=== PATIENT | female | born 2005 | race Caucasian/White ===

== ENCOUNTER 2023-10-01 11:43 | Emergency (ER) | payer OTHER ==
[2023-10-01 12:16] LABS: #Monocytes 0.4 10x3/uL (0.0-1.1); #Neutrophils 4.6 10x3/uL (1.5-8.4); %Basophils 0.2 % (0.0-2.0); %Eosinophils 0.6 % (0.0-6.0); %Monocytes 6.6 % (0.0-10.0); %Neutrophils 69.4 % (40.0-75.0); Hematocrit 40.1 % (34.9-44.5); Hemoglobin 13.8 g/dL (12.0-15.5); Mean Corpuscular HGB CONC 34.4 g/dL (32.0-36.0); Mean Corpuscular Hemoglobin 30.9 pg (27.0-33.0); Mean Corpuscular Volume 89.7 fl (81.6-98.3); Mean Platelet Volume 10.1 fl (7.4-10.4); Platelet Count 226 10x3/uL (150-450); RBC Distribution Width 11.5 % (11.5-14.5); Red Blood Cell (RBC) Count 4.47 10x6/uL (3.90-5.03); White Blood Cell (WBC) Count 6.7 10x3/uL (3.5-10.5)
[2023-10-01 12:36] LABS: ALT (SGPT) 11 U/L (8-55); AST (SGOT) 15 U/L (5-34); Albumin 3.8 g/dL (3.5-5.0); Alkaline Phosphatase 51 U/L (40-100); Anion Gap 13 mmol/L (10-20); BUN (Urea Nitrogen) 7 mg/dL (7.0-18.7); Bilirubin, Total 0.6 mg/dL (0.2-1.2); Calc. Creatinine Clearance 0 mL/min (70-130); Calcium 8.5 mg/dL (7.8-10.44); Carbon Dioxide 20 mmol/L (22-29); Chloride 110 mmol/L (98-107); Estimated GFR 123; Globulin 2.9 g/dL (2.4-3.5); Glucose 97 mg/dL (70-105); Potassium 3.7 mmol/L (3.5-5.1); Protein, Total 6.7 g/dL (6.0-8.3); Sodium 139 mmol/L (136-145)
[2023-10-01 13:38] LABS: BHCG - Serum Negative (NEGATIVE); Pregs Control Background? CLEAR/WHITE (CLR/WHITE); Pregs Control Bar Appear? YES (CONTROL BAR)
[2023-10-01 13:51] LABS: Troponin I 0.044 ng/mL (< 0.028)
[2023-10-01 15:59] LABS: Troponin I 0.106 ng/mL (< 0.028)
[2023-10-01] MEDS ORDERED: Acetaminophen 325 MG TAB PO PRN (16:48)
[2023-10-01] MEDS ORDERED: Senokot S 8.6-50 MG TAB PO PRN (16:48)
[2023-10-01] MEDS ORDERED: Ondansetron PF 4 MG/2 ML Vial IVP PRN (16:48)
[2023-10-01] MEDS ORDERED: Calcium Carbonate 500 MG ChewTAB PO PRN (16:48)
[2023-10-01] MEDS ORDERED: Ondansetron ODT 4 MG TAB PO PRN (16:48)
[2023-10-01] MEDS ORDERED: Metoprolol Tartrate 25 MG TAB PO SCH (17:00)
[2023-10-02] MEDS ORDERED: Metoprolol Tartrate 25 MG TAB PO SCH (09:00)
[2023-10-02] MEDS ORDERED: Enoxaparin 40 MG (0.4 mL) SYRINGE SC SCH (09:00)
== END 2023-10-01 17:12 | disposition home or self-care (01) ==
LOC: SUATTDRO 11:43 → CSHERS 11:43
PROVIDERS: ADMIT Internal Medicine; ATTEND Internal Medicine
DX: I47.10 Supraventricular tachycardia, unspecified (principal); R79.89 Other specified abnormal findings of blood chemistry
CPT/HCPCS: 36415; 71045; 80053; 84484; 84703; 85025; 93005